=== PATIENT | male | born 1955 | race Caucasian/White ===

== ENCOUNTER → 2019-03-10 14:55 | Outpatient (CLI) | payer OTHER, SELFPAY ==
--- NOTE | 2019-03-10 15:00 | CT_ITS ---
PROCEDURE: CT LUNG SCREENING CLINICAL INDICATION: HX TOBACCO USE Fifty pack-year smoking history, asymptomatic for lung cancer COMPARISON: No exams were available for comparison TECHNIQUE: The exam was performed on a GE Light Speed [address] scanner using 2.90 mGy CTDI. A low dose helical CT CHEST was performed on a multi-detector scanner. All CT scans at the facility use one or more dose reduction, viz: automated exposure control, ma/kV adjustment per patient size (including targeted exams where dose is matched to indication, i.e. head), or iterative reconstruction technique. The LDCT was performed in a facility that meets the criteria for the screening program. Data regarding this exam was submitted to ACR which is an approved registry. The order for this exam indicates that it came as a result of a lung cancer screening counseling shard decision-making visit that included all the elements required of such a visit including smoking cessation. The radiologist interpreting this exam meets the [facility] criteria for the LDCT lung cancer screening program. The exam is reported using the Lung-RADS classification scale and reported to the ACR registry. NOTE: This study was performed for the specific purposes of lung cancer screening and is not an alternative to diagnostic chest CT. RADIATION DOSE: CTDI vol(CT dose Index-volume) = 2.90mG DLP (Dose Length Product) = 127.15 mGcm Lung Rads Category: FINDINGS: COPD changes with centrilobular/panlobular emphysema in scattered areas of scarring with evidence of old granulomatous disease. 7 mm fissural nodule in the right minor fissure. There is a 3 mm ring-like density in the left upper lobe centrally nonspecific. OTHER FINDINGS: Nonobstructing punctate calculi in the lower pole both kidneys at 2-3 mm. Coronary artery calcifications. There is mild prominence of the left main pulmonary artery measuring up to 2.9 cm IMPRESSION: Lung rads category 2, benign findings. Recommend [address] Coronary artery calcifications with COPD and panlobular emphysema. Nonspecific prominence of the left main pulmonary artery Dictated by: Topher Cyr MD 03/14/2019 08:56 Electronically signed by Topher Cyr MD in [place] 03/14/2019 08:56
== END ==
PROVIDERS: PCP Family Medicine; Visit Provider Family Medicine
DX: Z87.891 Personal history of nicotine dependence (principal); Z12.2 Encounter for screening for malignant neoplasm of respiratory organs

== ENCOUNTER → 2019-06-21 14:02 | Outpatient (CLI) | payer OTHER, SELFPAY ==
[2019-06-21 14:50] VITALS: PULSE 62; PULSE 67
== END ==
PROVIDERS: PCP Family Medicine; Visit Provider Family Medicine
DX: R06.02 Shortness of breath (principal)
CPT/HCPCS: 94060; 94640

== ENCOUNTER → 2020-06-25 08:04 | Outpatient (CLI) | payer OTHER, SELFPAY ==
[2020-06-25 14:27] LABS: Basophils # 0.1 K/mm3 (0-0.2); Basophils % 0.8 % (0.1-2.0); Eosinophils # 0.1 K/mm3 (0.0-0.4); Eosinophils % 1.9 % (0.1-12.0); Hematocrit 51.8 % (42.0-52.0); Hemoglobin 17.4 g/dL (14.1-18.0); Lymphocytes # 1.5 K/mm3 (0.7-4.5); Lymphocytes % 23.5 % (10-50); Mean Corpuscular HGB Conc 33.6 g/dL (31.8-35.4); Mean Corpuscular Hemoglobin 32.2 pg (27.0-31.2); Mean Corpuscular Volume 95.9 fl (80-94); Mean Platelet Volume 8.7 fl (7.4-10.4); Monocytes # 0.5 K/mm3 (0.1-1.0); Monocytes % 7.7 % (1.7-9.3); Neutrophils # 4.1 K/mm3 (1.8-7.8); Platelet Count 220 K/mm3 (142-424); Red Blood Count 5.41 M/mm3 (4.60-6.20); Red Cell Distribution Width 14.3 % (11.5-17.5); White Blood Count 6.2 K/mm3 (4.8-10.8)
[2020-06-25 14:28] LABS: Alanine Aminotransferase 12 U/L (12-78); Albumin Level 3.9 g/dl (3.5-5.0); Aspartate Amino Transferase 21 U/L (17-59); Bilirubin,Total 0.6 mg/dl (0.2-1.3); Blood Urea Nitrogen 15 mg/dl (9-20); Calcium 8.9 mg/dl (8.4-10.2); Carbon Dioxide 29 mmol/L (22.0-30.0); Chloride 106 mmol/L (98-107); Estimated Glomerular Filt Rate 98 ml/min (>60); GFR (African American) 119 ML/MIN (>60); Glucose 101 mg/dl (74-100); Sodium 139 mmol/L (136-145); Total Protein,Serum 6.2 g/dl (6.3-8.2); Uric Acid 5.2 mg/dl (3.5-8.5)
[2020-06-25 14:29] LABS: Albumin/Globulin Ratio 1.7 (1.1-1.8); Alkaline Phosphatase 49 U/L (38-126); Cholesterol 154 mg/dl (140-200); Globulin 2.3 g/dL (1.3-3.2); HDL Cholesterol 52 mg/dl (40-60); Triglycerides 91 mg/dl (30-150); VLDL Cholesterol 18 mg/dL (0-40)
[2020-06-25 14:39] LABS: Direct LDL Cholesterol 75.25 mg/dL (100-129)
[2020-06-25 14:59] LABS: Thyroid Stimulating Hormone 2.96 uIU/mL (0.465-4.68)
[2020-06-25 15:33] LABS: Creatinine,Urine Random 139 mg/dL (Not Estab.)
[2020-06-25 15:34] LABS: Microalbumin/Creatinine Ratio 6.1
== END ==
PROVIDERS: Visit Provider Family Medicine
DX: I10 Essential (primary) hypertension (principal)
CPT/HCPCS: 36415; 80053; 80061; 82043; 82570; 84443; 84550; 85025

== ENCOUNTER → 2020-12-17 10:03 | Outpatient (CLI) | payer OTHER, SELFPAY ==
[2020-12-18 08:15] LABS: PSA, Free 1.14 ng/mL; Prostate Specific Ag 5.4 ng/mL (0.0-4.0)
== END ==
PROVIDERS: Visit Provider Urology
DX: R97.20 Elevated prostate specific antigen [PSA] (principal)
CPT/HCPCS: 36415; 84153; 84154

== ENCOUNTER 2022-10-26 15:02 | Inpatient (IN) | payer OTHER, SELFPAY ==
[2022-10-26] VITALS (16 sets, daily range): BP systolic 92–118; BP diastolic 52–71; PULSE 74–89; RESP 18–22; TEMP 36.5–36.7; O2SAT 85–96; BMI 21.7; BMI 20.7
--- NOTE | 2022-10-26 15:12 | ECG_ITS ---
APPROVED REPORT Exam: Resting ECG HR:75 bpm ECG Measurements Heart Rate 75 AXES CO 168 P 88 QRSd 95 QRS 88 QT 363 T 78 QTc 392 Conclusion SINUS RHYTHM NORMAL ECG UNCONFIRMED REPORT Electronically signed by : Kvng Rodriguez MD 10/26/2022 20:13:55
--- NOTE | 2022-10-26 15:43 | XR_ITS ---
FINAL REPORT CLINICAL HISTORY: SOA COMPARISON: Prior chest CT from 03/10/2019 FINDINGS: The heart size is normal. The mediastinum is normal. There are coarse interstitial opacities in the lung bases, with the appearance of moderate chronic fibrosis. This is more evident on the chest x-ray today than it was on a CT scan of 2019.. There are no pleural effusions. There is no pneumothorax. There is no osseous abnormality. IMPRESSION: Coarse interstitial opacities in the lung bases, with the appearance of moderate chronic fibrosis. This is more evident on the chest x-ray today than it was on a CT scan of 2019. Reviewed, Interpreted and Dictated by Zachery Herman MD Transcribed by Cassie Villela Authenticated and [facility]
--- NOTE | 2022-10-26 15:55 | CT_ITS ---
FINAL REPORT TECHNIQUE: Postcontrast axial images of the chest were performed in a CTA protocol. This study was performed with techniques to keep radiation doses as low as reasonably achievable, (ALARA). Individualized dose reduction technique using automated exposure control or adjustment of mA and/or kV according to the patient's size were employed. CLINICAL HISTORY: SOA, hypoxemia FINDINGS: The heart is normal in size. There is a precarinal lymph node measuring 1.9 cm and a right hilar lymph node measuring 1.8 cm. No pleural or pericardial effusion is identified. The thoracic aorta is normal in caliber with no focal aneurysm or dissection identified. There is no filling defect to suggest pulmonary embolism. No lung infiltrate or mass is identified. There are moderate changes of centrilobular emphysema. Coarse interstitial opacities are seen in the periphery bilaterally likely due to chronic fibrosis. The images of the upper abdomen demonstrate small, nonobstructing renal stones. IMPRESSION: No evidence for PE on this exam. Centrilobular emphysema and changes of chronic fibrosis. Small, nonobstructing renal stones. Reviewed, Interpreted and Dictated by Zachery Herman MD Transcribed by Candi Correa Authenticated and [facility]
--- NOTE | 2022-10-26 15:57 | HMH.EDGENADL ---
Discharge Plan Disposition Patient Disposition: Admitted As Inpatient Clinical Impressions Clinical Impression: COPD exacerbation, NSTEMI (non-ST elevated myocardial infarction) Discharge ED Provider: Andrei Porras General Adult HPI General Chief complaint: Shortness of Breath/Dyspnea Stated complaint: phy ref, soa Time Seen by Provider: 10/26/22 15:24 Mode of Arrival: Ambulatory Source of Information: Patient Limitations: No Limitations Description of Symptoms (Recalled from ER Triage Doc. by RN): Patient sent to ER by Lisa Poole for low O2 sats and increased SOB since Wednesday. Patient has no other complaints at this time. History of Present Illness HPI narrative: Is a 66-year-old male with history of COPD not currently smoking not on home oxygen, hypertension currently on a beta-bessy presenting with shortness of breath. Patient was seen a couple days prior to arrival, diagnosed with pneumonia and given antibiotics and steroid to go home with. Patient has had persistent, productive cough with green sputum. But denies chest pain, nausea or vomiting, fevers or chills. States that his cough may have gotten a little better, but has not improved significantly. Significant shortness of breath which has been persistent and/or worsening, so came to the ER for further evaluation again. Related Data Home Medications Medication Instructions Recorded Confirmed tamsulosin 0.4 mg capsule 0.4 mg PO DAILY . 10/26/22 10/26/22 Previous Rx's Medication Instructions Recorded bisoprolol 2.5 1 tab PO DAILY #30 tabs 06/30/21 mg-hydrochlorothiazide 6.25 mg tablet Allergies Allergy/AdvReac Type Severity Reaction Status Date / Time penicillin G Allergy Verified 12/23/20 13:13 [facility] Disclaimer: The information contained in this section may have been updated after the patient was seen, as this information can be updated by other users. Medical History (Updated 10/26/22 @ 22:21 by Vanesa Gonzalez RN) COPD (chronic obstructive pulmonary disease) Hypertension Family History (Updated 10/26/22 @ 22:22 by Vanesa Gonzalez RN) Other Family history of heart disease Social History (Updated 10/26/22 @ 22:20 by Vanesa Gonzalez RN) Smoking Status: Never smoker alcohol intake: never substance use type: denies use current occupational status: retired Travel in the last 8 weeks: None household members: none housing: house ROS Obtained: Yes All systems reviewed & no additional complaints except as documented Physical Exam General General appearance: alert, in distress and other ( ) Head Head exam: atraumatic and normocephalic Eye Eye exam: Present normal appearance, PERRL and EOMI ENT ENT exam: Present mucous membranes moist Neck Neck exam: Present normal inspection, full ROM and trachea midline Respiratory Respiratory exam: Present wheezes, accessory muscle use and prolonged expiratory phase; Absent respiratory distress or stridor Cardiovascular Cardiovascular exam: Present regular rate and normal rhythm Abdominal Exam Abdominal exam: Present soft; Absent distention, tenderness, guarding, rebound, rigidity or normal bowel sounds Extremities Exam Extremities exam: Absent edema Neurological Exam Neurological exam: Present alert, oriented X3, CN II-XII intact and normal gait; Absent motor sensory deficit Skin Skin exam: Present warm and dry; Absent diaphoresis or erythema Medical Decision Making Medical Records Medical records reviewed: Yes I reviewed the patient's medical records. Vishnu Inquiry Pt receiving controlled substance: No Vishnu was queried for this patient: No Vital Signs: 10/26/22 15:03 10/26/22 15:09 10/26/22 15:30 Temperature 97.7 F Temperature Source Oral Pulse Rate 80 74 Pulse Rate [Radial] 81 Respiratory Rate 22 Blood Pressure 118/66 97/62 L Blood Pressure [Right Arm] 118/66 Blood Pressure Mean 96 73 Blood Pressure Mean [Right Arm] 83 Blo
[2022-10-26 16:00] LABS: Alanine Aminotransferase 30 U/L (12-78); Albumin/Globulin Ratio 1.3 (1.1-1.8); Alkaline Phosphatase 35 U/L (38-126); Aspartate Amino Transferase 40 U/L (17-59); Bilirubin,Total 0.9 mg/dl (0.2-1.3); Blood Urea Nitrogen 31 mg/dl (9-20); Calcium 8.8 mg/dl (8.4-10.2); Carbon Dioxide 29 mmol/L (22.0-30.0); Chloride 95 mmol/L (98-107); Creatinine Clearance Estimated 65 mL/min (50-200); Estimated Glomerular Filt Rate 85 ml/min (>60); GFR (African American) 103 ML/MIN (>60); Glucose 98 mg/dl (74-100); Sodium 135 mmol/L (136-145)
[2022-10-26 16:33] LABS: Lactic Acid 1.7 mmol/L (0.7-2.1)
[2022-10-26 16:43] LABS: NT Pro Brain Natriuretic Pep. 1390 pg/mL (0-125)
[2022-10-26 16:45] LABS: Troponin I 0.16 ng/ml (0.00-0.034)
[2022-10-26 16:51] LABS: Procalcitonin 0.089 ng/mL (0.0-2.0)
[2022-10-26 16:56] LABS: Acetone, Serum (Rapid) None Detected (None Detect)
[2022-10-26 17:12] LABS: Basophils % 0.2 % (0.1-2.0); Eosinophils % 0.2 % (0.1-12.0); Hematocrit 48.7 % (42.0-52.0); Hemoglobin 15.6 g/dL (14.1-18.0); Lymphocytes # 1.3 K/mm3 (0.7-4.5); Lymphocytes % 12.8 % (10-50); Mean Corpuscular HGB Conc 32.1 g/dL (31.8-35.4); Mean Corpuscular Volume 96.6 fl (80-94); Mean Platelet Volume 8.1 fl (7.4-10.4); Monocytes # 1.2 K/mm3 (0.1-1.0); Monocytes % 11.7 % (1.7-9.3); Neutrophils # 7.7 K/mm3 (1.8-7.8); Neutrophils % 75.1 % (37.0-80.0); Platelet Count 186 K/mm3 (142-424); Red Blood Count 5.05 M/mm3 (4.60-6.20); Red Cell Distribution Width 13.5 % (11.5-17.5); White Blood Count 10.2 K/mm3 (4.8-10.8)
--- NOTE | 2022-10-26 17:17 | ECG_ITS ---
APPROVED REPORT Exam: Resting ECG HR:81 bpm ECG Measurements Heart Rate 81 AXES GA 168 P 88 QRSd 102 QRS 88 QT 369 T 77 QTc 406 Conclusion SINUS RHYTHM NORMAL ECG UNCONFIRMED REPORT Electronically signed by : Kvng Rodirguez MD 10/27/2022 19:57:50
--- NOTE | 2022-10-26 17:17 | PC.NURSE ---
Repeat EKG performed oer Dr. Porras's request
--- NOTE | 2022-10-26 17:19 | PC.NURSE ---
Rounded on patient. Zanoni given. No other needs at this time.
--- NOTE | 2022-10-26 18:16 | PC.NURSE ---
Notified RT of VBG
[2022-10-26 18:31] LABS: VBG Base Excess -0.6 mmol/L (-2.4-2.3); VBG HCO3 25.6 mmol/L (23-30); VBG Oxygen Saturation 89.5 % (50-70); VBG PCO2 51.4 mmol/L (35-51); VBG PH 7.32 mmol/L (7.31-7.41); VBG PO2 58.1 mmol/L (28-40); VBG Total CO2 27.2 mmol/L (23-27)
--- NOTE | 2022-10-26 19:30 | PC.NURSE ---
Pt 2nd trop being drawn by lab, pt a/o, o2 93% at this time.
[2022-10-26 20:10] LABS: Troponin I 0.13 ng/ml (0.00-0.034)
--- NOTE | 2022-10-26 20:16 | PC.NURSE ---
Pt daughter at bedside, pt eating, o2 at 87% pt o2 increased from 2l to 3l nc
--- NOTE | 2022-10-26 21:34 | PC.NURSE ---
Patient arrived to floor via wheelchair at 21:35.
[2022-10-27] VITALS (10 sets, daily range): BP systolic 99–114; BP diastolic 57–67; PULSE 70–90; RESP 18–22; TEMP 36.6–37.2; O2SAT 92–93; BMI 21.3
--- NOTE | 2022-10-27 07:30 | CA_ITS ---
APPROVED REPORT EXAM: Comprehensive 2D, Doppler, and color-flow Echocardiogram Powder Hand: Shikha You, DICK, RVS Ht: 5 ft 6 in Wt: 136lbs BSA: 1.70 BP: 92/59 mmHg Indications: COPD exacerbation, NSTEMI, Pneumonia, HTN 2D Dimensions Aortic Root 3.31 cm LA Volume 54.50 mL Left Atrium 2.50 cm LA Volume Index 31.30 mL/m2 (M/F) 16-34 LVOT 2.17 cm (M/F) 1.5-2.5 M-Mode Dimensions RVDd 2.17 cm (0.9-2.6) LA Diam 3.93 cm (1.9-4.0) LVDd 4.68 cm (3.5-5.7) Ao Diam 3.77 cm (2.0-3.7) LVDs 2.84 cm (3.5-5.7) IVSd 0.90 cm (0.6-1.1) PWd 0.84 cm (0.6-1.1) EF (Teich) 60.00% EPSs 0.61 cm FS 39.30% EDV (Teich) 101.30 mL TAPSE 2.96 (<1.7) ESV (Teich) 30.60 mL LV Diastology E Decel Time 183.00 (160-240 msec) E/A Ratio 0.88 MED E' 8.90 (< 7 cm/sec) MED A' 12.60 cm/s E'/MED E' Ratio 7.03 (>14) LAT E' 5.70 (<10 cm/sec) LAT A' 10.30 cm/s E/LAT E' Ratio 10.98 (>14) Aortic Valve LVOT Max 88.00 (70-110 cm/s) LVOT VTI 18.07 cm AoV Peak Kaushik. 152.00 (50-130 cm/s) AO Peak GR. 9.20 mmHg AO Mean GR. 4.60 (<5 mmHg) AO VTI 31.64 (18-25 cm) CARLENE (VTI) 2.11 (2.5-4.5 cm2) Mitral Valve MV A Velocity 71.00 (40-130 cm/s) E/A Ratio 0.88 MV Decel. Time 183.00 (160-240 ms) Pulmonary Valve PV Peak Velocity 63.00 (50-150 cm/s) Tricuspid Valve TR P. Velocity 330.00 cm/s RAP Estimate 10.00 mmHg RVSP 53.70 mmHg Left Ventricle The left ventricle is normal size. The left ventricular systolic function is low normal. There is normal left ventricular wall thickness. There is mild hypokinesis of the basal inferior LV wall. Diastolic function is indeterminate. LVEF is 50% Right Ventricle The right ventricle is mildly dilated. Right ventricle is mildly hypokinetic. Atria The left atrium size is normal. The right atrium size is normal. There is no Doppler evidence of interatrial shunt. Aortic Valve The aortic valve is normal in structure. There is no aortic valvular stenosis. No aortic regurgitation is present. Mitral Valve The mitral valve is normal in structure. No evidence of mitral valve stenosis. Mild mitral regurgitation. Tricuspid Valve Tricuspid valve leaflets are thin and pliable. Moderate tricuspid regurgitation. RVSP is 50-55 mmHg. Pulmonic Valve The pulmonary valve is normal in structure. Mild pulmonic regurgitation. Great Vessels The aortic root is normal in size. The ascending aorta is normal in size. The IVC is dilated, but collapses > 50% with respirophasic variation. RA pressure is estimated at 8 mmHg. Pericardium There is no pericardial effusion. Other Information Study Quality: Adequate Conclusion Low normal LV systolic function. LVEF is 50%. Mild hypokinesis of the basal inferior LV wall. Mild RV dilation with mild reduction in RV function. Mild MR. Moderate TR. Elevated RVSP 50-55 mmHg. Electronically signed by : Latesha Guzman, 10/28/2022 00:53:46
--- NOTE | 2022-10-27 08:17 | EXP.CARD.CON ---
History of Present Illness History of Present Illness Consult date: 10/27/22 Requesting physician: Cuco Leon Consult reason: shortness of breath Chief complaint: Cough, SOA Additional Medical History:: 1. Ex smoker with at least 80 pack year history A. COPD with centrilobular/panlobular emphysema 2. Coronary artery calcification noted on CT scan 03/10/2019 3. Hypertension History of present illness: Is a 66-year-old male with history of COPD not currently smoking not on home oxygen, hypertension currently on a beta-bessy presenting with shortness of breath. Patient was seen a couple days prior to arrival, diagnosed with pneumonia and given antibiotics and steroid to go home with. Patient has had persistent, productive cough with green sputum. But denies chest pain, nausea or vomiting, fevers or chills. States that his cough may have gotten a little better, but has not improved significantly. Significant shortness of breath which has been persistent and/or worsening, so came to the ER for further evaluation again. The above per Dr. Porras The above events confirmed with the patient. He denies any chest pain except from cough. States he is very active and mows 3 acres of grass without problems. Patient states he has never been in the hospital before this admission. 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 He has recently quit. Cardiology consulted for elevated troponins in the setting of COPD exacerbation. Echocardiogram is being performed at this time with preliminary EF in the 55% range. [facility] Disclaimer: The information contained in this section may have been updated after the patient was seen, as this information can be updated by other users. Medical History (Updated 10/27/22 @ 08:30 by STACIA Rodriguez) COPD (chronic obstructive pulmonary disease) Hypertension Family History (Updated 10/26/22 @ 22:22 by Vanesa Gonzalez RN) Family history of heart disease Social History (Updated 10/26/22 @ 22:20 by Vanesa Gonzalez RN) Smoking Status: Never smoker alcohol intake: never substance use type: denies use current occupational status: retired Travel in the last 8 weeks: None household members: none housing: house Review of Systems Review of Systems Review of systems:: pertinent systems reviewed and negative unless documented below *Cardiovascular Cardiovascular: Reports chest pain and Reports dyspnea *Respiratory Respiratory: Reports cough and Reports dyspnea Exam Data for Last 24 hours Vital signs and Labs for Last 24 Hours: Temp Pulse Resp BP Pulse Ox O2 Del Method O2 Flow Rate 97.9 F 70 20 99/57 L 93 L Nasal Cannula 3 10/27/22 07:54 10/27/22 07:54 10/27/22 07:54 10/27/22 07:54 10/27/22 07:54 10/27/22 07:54 10/27/22 07:54 Laboratory Results - last 24 hr 10/26/22 15:38: WBC 10.2, RBC 5.05, Hgb 15.6, Hct 48.7, MCV 96.6 H, MCH 31.0, MCHC 32.1, RDW 13.5, Plt Count 186, MPV 8.1, Neut % (Auto) 75.1, Lymph % (Auto) 12.8, [place] % (Auto) 11.7 H, Eos % (Auto) 0.2, Baso % (Auto) 0.2, Neut # (Auto) 7.7, Lymph # (Auto) 1.3, [place] # (Auto) 1.2 H, Eos # (Auto) 0.0, Baso # (Auto) 0.0, Sodium 135 L, Potassium 4.0, Chloride 95 L, Carbon Dioxide 29, Anion Gap 15.0, BUN 31 H, Creatinine 0.90, Estimated Creat Clear 65, Estimated GFR 85, Est GFR ( Amer) 103, Glucose 98, Lactate 1.7, Calcium 8.8, Total Bilirubin 0.9, AST 40, ALT 30, Alkaline Phosphatase 35 L, Troponin I 0.16 H, NT-Pro-B Natriuret Pep 1390 H, Total Protein 7.0, Albumin 4.0, Globulin 3.0, Albumin/Globulin Ratio 1.3, Procalcitonin 0.089, Acetone Level None detected 10/26/22 15:57: VBG pH 7.32, VBG pCO2 51.4 H, VBG pO2 58.1 H, VBG HCO3 25.6, VBG Total CO2 27.2 H, VBG O2 Saturation 89.5 H, VBG Base Excess -0.6 10/26/22 19:27: Troponin I 0.13 H 10/26/22 22:25: Troponin I 0.10 H I & O for Last 24 hours: Intake & Output 10/24/22 10/25/22 10/26/22 10/27/22 11:59 11:59 11:59 11:59 Int
--- NOTE | 2022-10-27 08:55 | EXP.HP ---
History of Present Illness *Admission Date: 10/26/22 *Reason for visit:: Hypoxia and respiratory distress. *History of present illness: Mr. Moody is a 66-year-old male with a history of hypertension, BPH, and COPD who presented to the office of [facility] 10/26/2022 complaining of shortness of breath and ongoing productive cough. He states he was awakening during the night for the last 3 nights and was unable to breathe. He has been using DuoNeb treatments frequently with some assistance. He was also seen in the office on 10/23/2022 and started on Zithromax for a respiratory infection. He also received a steroid shot at that time. With evaluation in the office of [facility] yesterday white blood cell count was found to be 10,200. He was having labored respiratory efforts and was sent to the ER for treatment, management, and possible admission. With evaluation in the emergency room white count continued to be elevated. He was noted to be afebrile with O2 sats initially at 85%. After application of oxygen per nasal cannula at 2 L, O2 sats were 94. He was given several DuoNeb treatments and started on Rocephin and Zithromax IV. He also received 125 mg of Solu-Medrol. Troponin I's were found to be elevated. He was thus admitted for ongoing treatment and for further evaluation. This a.m. at time of exams he admits to feeling little bit better. He did sleep some. He is hungry for breakfast. He continues with a nonproductive cough. He has remained on O2 at 3 L/min. He denies any chest pain. Chest x-ray revealed coarse interstitial opacities in the lung base with appearance of moderate chronic fibrosis. He also had a CTA of the chest which revealed no evidence of PE, Central obar emphysema and changes of chronic fibrosis; small nonobstructing renal stones. [facility] Disclaimer: The information contained in this section may have been updated after the patient was seen, as this information can be updated by other users. Medical History (Updated 10/27/22 @ 10:18 by Yesi Ball MD) Acute respiratory failure with hypoxia BPH (benign prostatic hyperplasia) COPD (chronic obstructive pulmonary disease) Hypertension Pneumonia Family History (Updated 10/27/22 @ 09:02 by Lisa Poole APRN) Family history of heart disease Hypertension Stroke Social History (Updated 10/26/22 @ 22:20 by Vanesa Gonzalez RN) Smoking Status: Never smoker alcohol intake: never substance use type: denies use current occupational status: retired Travel in the last 8 weeks: None household members: none housing: house Review of Systems Constitutional Constitutional: Reports difficulty sleeping (Due to shortness of breath), Denies fever(s), Denies frequent falls, Denies headache(s), Reports poor appetite and Denies weakness Eyes Eyes: Denies change in vision ENT Ears, Nose, Mouth, and Throat: Denies dizziness, Denies otalgia, Denies headache(s), Denies sore throat and Denies vertigo *Cardiovascular Cardiovascular: Denies chest pain, Reports dyspnea, Reports dyspnea on exertion, Denies edema and Denies irregular heart rhythm *Respiratory Respiratory: Reports change in phlegm color, Reports chest congestion, Reports cough, Reports dyspnea, Reports dyspnea on exertion and Denies hemoptysis *Gastrointestinal Gastrointestinal: Denies change in stool character, Reports heartburn, Denies nausea and Denies vomiting *Genitourinary Genitourinary: Denies difficulty urinating *Musculoskeletal Musculoskeletal: Denies arthralgias and Reports muscle weakness Comments: States when he feels well that he is very active *Neurologic Neurologic: Denies dizziness, Denies frequent falls, Denies headache(s), Denies vertigo and Denies weakness Meds Home Medications and Allergies Home Medications Medication Instructions Recorded Confirmed Type bisoprolol 2.5 1 tab PO DAILY #30 tabs 06/30/21 10/26/22 Rx mg-hydrochlorothiazide 6.25 mg
--- NOTE | 2022-10-27 09:15 | EXP.PULM.CON ---
History of Present Illness History of present illness: Mr. Moody is a 66-year-old male greater than [id number] smoker still asthma blood in 2020 carries a diagnosis COPD emphysema using only nebulizations on as-needed basis at home presented with worsening respiratory distress and wheezing with worsening productive cough and greenish phlegm and pulmonary was called for further evaluation. [facility] Disclaimer: The information contained in this section may have been updated after the patient was seen, as this information can be updated by other users. Medical History (Updated 10/27/22 @ 10:18 by Yesi Ball MD) Acute respiratory failure with hypoxia BPH (benign prostatic hyperplasia) COPD (chronic obstructive pulmonary disease) Hypertension Pneumonia Family History (Updated 10/27/22 @ 09:02 by Lisa Poole APRN) Other Family history of heart disease Hypertension Stroke Social History (Updated 10/26/22 @ 22:20 by Vanesa Gonzalez RN) Smoking Status: Never smoker alcohol intake: never substance use type: denies use current occupational status: retired Travel in the last 8 weeks: None household members: none housing: house Review of Systems Constitutional Constitutional: Reports fatigue, Denies frequent falls, Denies headache(s) and Denies weakness Eyes Eyes: Denies eye discharge, Denies dry eyes, Denies irritation and Denies itchy eyes ENT Ears, Nose, Mouth, and Throat: Denies dizziness, Denies headache(s), Denies lip swelling, Denies throat swelling and Denies vertigo *Cardiovascular Cardiovascular: Reports dyspnea and Reports dyspnea on exertion *Respiratory Respiratory: Reports chest congestion, Reports cough, Reports dyspnea, Reports dyspnea on exertion, Reports excessive phlegm production and Reports wheezing *Gastrointestinal Gastrointestinal: Denies abdominal pain, Denies belching and Denies cramping *Musculoskeletal Musculoskeletal: Reports back pain, Reports myalgias and Reports other (No small joint swelling or Pain) *Neurologic Neurologic: Denies dizziness, Denies frequent falls, Denies headache(s), Denies vertigo and Denies weakness Psychiatric Psychiatric: Denies homicidal ideation and Denies suicidal ideation Endocrine Endocrine: Reports fatigue and Denies heat intolerance Hematologic/Lymphatic Hematologic/Lymphatic: Denies easy bleeding and Denies lymphadenopathy Allergic/Immunologic Allergic/Immunologic: Denies itchy eyes, Denies lip swelling, Denies throat swelling and Reports wheezing Pulmonology Exam Inpatient Vital signs and Labs for Last 24 Hours: Temp Pulse Resp BP Pulse Ox O2 Del Method O2 Flow Rate 97.9 F 70 20 99/57 L 93 L Nasal Cannula 3 10/27/22 07:54 10/27/22 07:54 10/27/22 07:54 10/27/22 07:54 10/27/22 07:54 10/27/22 07:54 10/27/22 07:54 Laboratory Results - last 24 hr 10/26/22 15:38: WBC 10.2, RBC 5.05, Hgb 15.6, Hct 48.7, MCV 96.6 H, MCH 31.0, MCHC 32.1, RDW 13.5, Plt Count 186, MPV 8.1, Neut % (Auto) 75.1, Lymph % (Auto) 12.8, [place] % (Auto) 11.7 H, Eos % (Auto) 0.2, Baso % (Auto) 0.2, Neut # (Auto) 7.7, Lymph # (Auto) 1.3, [place] # (Auto) 1.2 H, Eos # (Auto) 0.0, Baso # (Auto) 0.0, Sodium 135 L, Potassium 4.0, Chloride 95 L, Carbon Dioxide 29, Anion Gap 15.0, BUN 31 H, Creatinine 0.90, Estimated Creat Clear 65, Estimated GFR 85, Est GFR ( Amer) 103, Glucose 98, Lactate 1.7, Calcium 8.8, Total Bilirubin 0.9, AST 40, ALT 30, Alkaline Phosphatase 35 L, Troponin I 0.16 H, NT-Pro-B Natriuret Pep 1390 H, Total Protein 7.0, Albumin 4.0, Globulin 3.0, Albumin/Globulin Ratio 1.3, Procalcitonin 0.089, Acetone Level None detected 10/26/22 15:57: VBG pH 7.32, VBG pCO2 51.4 H, VBG pO2 58.1 H, VBG HCO3 25.6, VBG Total CO2 27.2 H, VBG O2 Saturation 89.5 H, VBG Base Excess -0.6 10/26/22 19:27: Troponin I 0.13 H 10/26/22 22:25: Troponin I 0.10 H I & O for Labs for Last 24 Hours: Intake & Output 10/24/22 10/25/22 10/26/22 10/27/22 23:59 23:59 23:59 23:
--- NOTE | 2022-10-27 18:43 | INFXCTL.NOTE ---
Patient reported a one time complaint of heart burn, patient received a dose of mylanta. Patient's vital signs have been stable this shift.
--- NOTE | 2022-10-27 21:19 | PC.NURSE ---
Removed supplemental oxygen for trial wean, pt desated to 75 on room air at rest. Supplemental oxygen reapplied via nasal cannula at 2L, saturations at 90%. Pt remains on continuous saturation monitoring.
[2022-10-28] VITALS (14 sets, daily range): BP systolic 98–121; BP diastolic 57–67; PULSE 60–95; RESP 16–20; TEMP 36.6–37; O2SAT 92–98; BMI 22.1
[2022-10-28 06:58] LABS: Hematocrit 47.4 % (42.0-52.0); Hemoglobin 14.8 g/dL (14.1-18.0); Lymphocytes # 0.5 K/mm3 (0.7-4.5); Lymphocytes % 5.2 % (10-50); Mean Corpuscular HGB Conc 31.2 g/dL (31.8-35.4); Mean Corpuscular Hemoglobin 30.9 pg (27.0-31.2); Mean Corpuscular Volume 98.9 fl (80-94); Monocytes # 0.5 K/mm3 (0.1-1.0); Monocytes % 6.1 % (1.7-9.3); Neutrophils # 7.9 K/mm3 (1.8-7.8); Neutrophils % 88.6 % (37.0-80.0); Platelet Count 218 K/mm3 (142-424); Red Blood Count 4.79 M/mm3 (4.60-6.20); Red Cell Distribution Width 13.6 % (11.5-17.5); White Blood Count 8.9 K/mm3 (4.8-10.8)
[2022-10-28 07:05] LABS: MANUAL DIFFERENTIAL MANUAL DIFFERENTIAL (MANUAL DIFF)
[2022-10-28 07:15] LABS: Anion Gap 7.4 mEq/L (5-15); Calcium 8.5 mg/dl (8.4-10.2); Carbon Dioxide 36 mmol/L (22.0-30.0); Chloride 102 mmol/L (98-107); Glucose 157 mg/dl (74-100); Potassium 4.4 mmoL/L (3.5-5.1); Sodium 141 mmol/L (136-145)
[2022-10-28 07:20] LABS: Blood Urea Nitrogen 20 mg/dl (9-20); Creatinine Clearance Estimated 66 mL/min (50-200); Estimated Glomerular Filt Rate 136 ml/min (>60); GFR (African American) 164 ML/MIN (>60); Lymphocytes % 11 % (10-50); Monocytes % 4 % (2-9); Neutrophils % 84 % (42-76); Platelet Estimate Normal; RBC Morphology Normal; Total Cells Counted 100
--- NOTE | 2022-10-28 08:36 | EXP.ACUTE.PN ---
Subjective *Date: 10/28/22 *Time: 08:36 Interval history: Patient feels about thie same today as yesterday. States he had to have a double breathing treatment at 6 am this morning. Medical Exam Vital signs and Labs for Last 24 Hours: Vital Signs Temp Pulse Pulse Resp BP Pulse Ox O2 Del Method 10/28/22 08:00 98.1 F 79 16 98/57 L 92 L Nasal Cannula 10/28/22 06:42 Nasal Cannula 10/28/22 06:14 62 10/28/22 06:14 66 10/28/22 06:14 93 L Nasal Cannula 10/28/22 04:00 71 10/28/22 04:32 Nasal Cannula 10/28/22 04:00 98.6 F 78 18 108/66 L 96 Nasal Cannula 10/28/22 03:00 Nasal Cannula 10/27/22 20:00 80 10/28/22 00:00 60 10/28/22 02:17 77 10/28/22 02:17 78 10/28/22 00:23 Nasal Cannula 10/27/22 22:47 Nasal Cannula 10/27/22 22:19 87 10/27/22 22:19 79 10/27/22 20:35 Nasal Cannula 10/27/22 20:00 Room Air 10/27/22 19:39 98.9 F 78 19 112/67 93 L Nasal Cannula 10/27/22 18:40 79 10/27/22 18:40 90 10/27/22 18:40 92 L Nasal Cannula 10/27/22 16:00 70 10/27/22 16:00 98.0 F 82 22 111/66 92 L Nasal Cannula 10/27/22 12:00 77 10/27/22 13:17 89 10/27/22 13:17 88 10/27/22 11:44 97.9 F 79 18 114/58 L 93 L Nasal Cannula 10/27/22 11:26 77 18 O2 Flow Rate 10/28/22 08:00 3 10/28/22 06:42 10/28/22 06:14 10/28/22 06:14 10/28/22 06:14 3 10/28/22 04:00 10/28/22 04:32 10/28/22 04:00 3 10/28/22 03:00 10/27/22 20:00 10/28/22 00:00 10/28/22 02:17 10/28/22 02:17 10/28/22 00:23 10/27/22 22:47 10/27/22 22:19 10/27/22 22:19 10/27/22 20:35 10/27/22 20:00 10/27/22 19:39 3 10/27/22 18:40 10/27/22 18:40 10/27/22 18:40 3 10/27/22 16:00 10/27/22 16:00 3 10/27/22 12:00 10/27/22 13:17 10/27/22 13:17 10/27/22 11:44 3 10/27/22 11:26 Intake and Output 10/27/22 10/28/22 10/28/22 23:59 07:59 15:59 Intake Total 270 / 1269 1100 / 1370 270 / 1370 Output Total 0 / 0 0 / 0 Balance 270 / 1269 1100 / 1370 270 / 1370 Intake: Intake, Oral Amount 270 / 540 270 / 270 Intake, Total IV Amount 1100 / 1100 0.9 % Sodium Chloride 1000ML 1, 1100 / 1100 000 ml @ 100 mls/hr IV .Q10H [facility] Rx#:[id number] Output: Output, Urine Amount 0 / 0 0 / 0 Other: Number of Unmeasured Voids 1 1 Weight 137 lb 8 oz Patient Weight 10/28/22 23:59 Weight 137 lb 8 oz Laboratory Results - last 24 hr 10/28/22 06:30: WBC 8.9, RBC 4.79, Hgb 14.8, Hct 47.4, MCV 98.9 H, MCH 30.9, MCHC 31.2 L, RDW 13.6, Plt Count 218, MPV 8.0, Neut % (Auto) 88.6 H, Lymph % (Auto) 5.2 L, [place] % (Auto) 6.1, Eos % (Auto) 0.0 L, Baso % (Auto) 0.0 L, Neut # (Auto) 7.9 H, Lymph # (Auto) 0.5 L, [place] # (Auto) 0.5, Eos # (Auto) 0.0, Baso # (Auto) 0.0, Total Counted 100, Neutrophils % (Manual) 84 H, Band Neutrophils % 1.0, Lymphocytes % (Manual) 11, Monocytes % (Manual) 4, Platelet Estimate Normal, RBC Morphology Normal, Sodium 141, Potassium 4.4, Chloride 102, Carbon Dioxide 36 H, Anion Gap 7.4, BUN 20 D, Creatinine 0.60 L D, Estimated Creat Clear 66, Estimated GFR 136, Est GFR ( Amer) 164 D, Glucose 157 H, Calcium 8.5 I & O for Labs for Last 24 Hours: Intake & Output 10/25/22 10/26/22 10/27/22 10/28/22 23:59 23:59 23:59 23:59 Intake Total 1269 / 1269 1370 / 1370 Output Total 0 / 0 0 / 0 Balance 1269 / 1269 1370 / 1370 Weight 129 lb 1 oz 132 lb 9 oz 137 lb 8 oz Microbiology Reports for the Last 24 Hours: Microbiology 10/27/22 11:20 Sputum - Expectorated Sputum Gram Stain - Final Constitutional: Present no acute distress Respiratory: Present wheezes and diminished air movement Cardiac: Present Reg Rate and Rhythm GI: Present normal bowel sounds; Absent tenderness Extremities: Present normal inspection and full ROM Skin: Present intact; Absent erythema Neur
--- NOTE | 2022-10-28 09:13 | EXP.CARD.PN ---
Subjective Subjective Date: 10/28/22 Time: 09:14 Principal diagnosis: COPD exacerbation, NSTEMI Interval history: 66-year-old white male sitting in bed in no acute distress. Oxygen in place. Patient denies any chest pain but continues to have productive cough of greenish colored phlegm. He does not feel that he can lay flat for any procedure at this time Exam Data for Last 24 hours Vital signs and Labs for Last 24 Hours: Temp Pulse Resp BP Pulse Ox O2 Del Method O2 Flow Rate 98.1 F 79 16 98/57 L 92 L Nasal Cannula 3 10/28/22 08:00 10/28/22 08:00 10/28/22 08:00 10/28/22 08:00 10/28/22 08:00 10/28/22 08:00 10/28/22 08:00 Laboratory Results - last 24 hr 10/28/22 06:30: WBC 8.9, RBC 4.79, Hgb 14.8, Hct 47.4, MCV 98.9 H, MCH 30.9, MCHC 31.2 L, RDW 13.6, Plt Count 218, MPV 8.0, Neut % (Auto) 88.6 H, Lymph % (Auto) 5.2 L, [place] % (Auto) 6.1, Eos % (Auto) 0.0 L, Baso % (Auto) 0.0 L, Neut # (Auto) 7.9 H, Lymph # (Auto) 0.5 L, [place] # (Auto) 0.5, Eos # (Auto) 0.0, Baso # (Auto) 0.0, Total Counted 100, Neutrophils % (Manual) 84 H, Band Neutrophils % 1.0, Lymphocytes % (Manual) 11, Monocytes % (Manual) 4, Platelet Estimate Normal, RBC Morphology Normal, Sodium 141, Potassium 4.4, Chloride 102, Carbon Dioxide 36 H, Anion Gap 7.4, BUN 20 D, Creatinine 0.60 L D, Estimated Creat Clear 66, Estimated GFR 136, Est GFR ( Amer) 164 D, Glucose 157 H, Calcium 8.5 I & O for Last 24 hours: Intake & Output 10/25/22 10/26/22 10/27/22 10/28/22 11:59 11:59 11:59 11:59 Intake Total 729 / 729 191 1909 Output Total 0 / 0 0 / 0 Balance 729 / 729 1909 Weight 132 lb 9 oz 137 lb 8 oz Microbiology Reports for the Last 24 Hours: Microbiology 10/27/22 11:20 Sputum - Expectorated Sputum Gram Stain - Final Constitutional Constitutional: no acute distress *Routine Respiratory Exam Respiratory: Present decreased breath sounds and rhonchi *Routine Cardiovascular Exam Cardiovascular: Present RRR *Routine Neurological Exam Neurological: Present alert and oriented X3 Progress Note: A&P Assessment and plan (1) COPD exacerbation: Status: Acute (2) Pneumonia: Status: Acute (3) NSTEMI (non-ST elevated myocardial infarction): Status: Acute (4) Acute respiratory failure with hypoxia: Status: Acute (5) Hypertension: Status: Acute Assessment and Plan Assessment and Plan for All Diagnoses:: 1. COPD exacerbation with hypoxemia -CTA negative for PE or infiltrates -on ceftriaxone and azithromycin along with IV steroids -treatment per Dr. Leon and Dr. Ball 2. Elevated troponin/NSTEMI related to #1 -echo shows EF 50% with mild hypokinesis of the basal inferior LV wall. Mild RV dilatation with mild reduced RV function. Mild MR and moderate TR with RVSP of 50-55 mmHg. -CAC noted on CTA scan -In light of wall motion abnormality in setting of non-STEMI, would prefer to proceed with C prior to discharge but pt unable to lie flat for very long without coughing or sitting up. -aspirin 81 mg daily -We will add Entresto due to non-STEMI and wall motion abnormality with mildly reduced EF. 3. HTN -switch to entresto due to NSTEMI and wall motion abnormality -stop bisoprolol/HCTZ
--- NOTE | 2022-10-28 09:17 | EXP.PULM.PN ---
Subjective *Date: 10/28/22 *Time: 10:41 Interval history: No acute respiratory vents overnight. Admits continued improvement in his symptoms Pulmonology Exam Inpatient Vital signs and Labs for Last 24 Hours: Temp Pulse Resp BP Pulse Ox O2 Del Method O2 Flow Rate 98.1 F 79 16 98/57 L 92 L Nasal Cannula 3 10/28/22 08:00 10/28/22 08:00 10/28/22 08:00 10/28/22 08:00 10/28/22 08:00 10/28/22 08:00 10/28/22 08:00 Laboratory Results - last 24 hr 10/28/22 06:30: WBC 8.9, RBC 4.79, Hgb 14.8, Hct 47.4, MCV 98.9 H, MCH 30.9, MCHC 31.2 L, RDW 13.6, Plt Count 218, MPV 8.0, Neut % (Auto) 88.6 H, Lymph % (Auto) 5.2 L, [place] % (Auto) 6.1, Eos % (Auto) 0.0 L, Baso % (Auto) 0.0 L, Neut # (Auto) 7.9 H, Lymph # (Auto) 0.5 L, [place] # (Auto) 0.5, Eos # (Auto) 0.0, Baso # (Auto) 0.0, Total Counted 100, Neutrophils % (Manual) 84 H, Band Neutrophils % 1.0, Lymphocytes % (Manual) 11, Monocytes % (Manual) 4, Platelet Estimate Normal, RBC Morphology Normal, Sodium 141, Potassium 4.4, Chloride 102, Carbon Dioxide 36 H, Anion Gap 7.4, BUN 20 D, Creatinine 0.60 L D, Estimated Creat Clear 66, Estimated GFR 136, Est GFR ( Amer) 164 D, Glucose 157 H, Calcium 8.5 I & O for Labs for Last 24 Hours: Intake & Output 10/25/22 10/26/22 10/27/22 10/28/22 23:59 23:59 23:59 23:59 Intake Total 1269 / 1269 1370 / 1370 Output Total 0 / 0 0 / 0 Balance 1269 / 1269 1370 / 1370 Weight 129 lb 1 oz 132 lb 9 oz 137 lb 8 oz Microbiology Reports for the Last 24 Hours: Microbiology 10/27/22 11:20 Sputum - Expectorated Sputum Gram Stain - Final Constitutional: Present moderate distress Head: Present normocephalic and atraumatic ENT: Present normal exam, normal oropharynx and mucous membranes moist Neck: Present normal inspection and full ROM Respiratory: Present respiratory distress, wheezes and able to speak in complete sentences Cardiac: Present S1/S2, Tachycardia and radial pulses present GI: Present soft and distention; Absent tenderness or guarding Skin: Present intact; Absent cyanosis or jaundice Neuro: Present alert, awake and oriented x 3 Extremities: Present normal inspection; Absent clubbing or cyanosis Psychiatric: Present normal affect and cooperative Assessment and Plan *Assessment and plan (1) Pneumonia: Status: Acute Qualifiers: Laterality: right Lung location: middle lobe of lung Pneumonia type: due to unspecified organism Qualified Code(s): J18.9 - Pneumonia, unspecified organism Category: Medical Code(s): J18.9 - Pneumonia, unspecified organism (2) COPD exacerbation: Status: Acute Category: Medical Code(s): J44.1 - Chronic obstructive pulmonary disease with (acute) exacerbation (3) Acute respiratory failure with hypoxia: Status: Acute Category: Medical Code(s): J96.01 - Acute respiratory failure with hypoxia Plan Mr. Moody is a 66-year-old male greater than [id number] smoker lst smoked in 2020 carries a diagnosis COPD/emphysema using only nebulizations on as-needed basis at home, not on oxygen presented with worsening respiratory distress and wheezing with worsening productive cough and greenish phlegm and pulmonary was called for further evaluation. Spirometry from 2019 severe COPD with V1 VC ratio 40,FEV1 at 37% predicted and 1.15 L Patient was recently treated as an outpatient basis for COPDexacerbation with azithromycin and prednisone. CTA upon admission no evidence of pulm embolism. Bilateral diffuse centrilobular emphysematous changes noted. Minimal RML and RLLL lower lobe tree-in-bud opacities noted along with right hilar and subcarinal lymphadenopathy likely reactive. Patient on presentation was initiated on ceftriaxone and azithromycin, methylprednisolone and DuoNebs scheduled. Afebrile. No evidence of leukocytosis upon admission. Interval Update: No acute respiratory vents overnight. Patient admits improving respiratory symptoms mascul
--- NOTE | 2022-10-28 18:26 | PC.NURSE ---
pt has remained on 3l nc, tolerating well at rest. low 80s on ra. wheezes noted to abraham lower lungs. family at , no concerns at this time.
--- NOTE | 2022-10-28 19:14 | PC.NURSE ---
pts o2 on the monitor dropped 79-low 80s. pt stated they just gave me a breathing treatment, i had a coughing fit, and i just used that breathing thing pt talking about the IS. o2 now on 4l nc, pt sats 90%.
[2022-10-29] VITALS (7 sets, daily range): BP systolic 116–136; BP diastolic 59–72; PULSE 60–94; RESP 18; TEMP 36.4–36.7; O2SAT 90–95; BMI 23.3
--- NOTE | 2022-10-29 05:36 | PC.NURSE ---
Patient has had a good night. RN attempted to wean O2 down, but was unable to keep saturations above 90. Patient remains independent when going to the bathroom and with ambulation. No other issues noted
--- NOTE | 2022-10-29 08:21 | EXP.ACUTE.PN ---
Subjective *Date: 10/29/22 *Time: 08:44 Interval history: Patient feeling better. Still coughing and SOA. Tried to remove oxygen and his sats decreased into the 80's. Denies any pain. Wants to go home. Medical Exam Vital signs and Labs for Last 24 Hours: Vital Signs Temp Pulse Pulse Resp BP Pulse Ox O2 Del Method 10/29/22 07:52 98.0 F 73 18 136/72 94 L Nasal Cannula 10/29/22 06:04 77 10/29/22 06:04 81 10/29/22 06:04 92 L Nasal Cannula 10/29/22 04:00 60 10/29/22 04:00 98.0 F 75 18 116/66 95 10/29/22 00:00 70 10/29/22 01:00 Nasal Cannula 10/29/22 02:26 80 10/29/22 02:26 81 10/29/22 00:00 98.1 F 94 H 18 118/59 L 94 L Room Air 10/29/22 06:48 Nasal Cannula 10/29/22 05:00 Nasal Cannula 10/29/22 03:00 Nasal Cannula 10/28/22 23:00 Nasal Cannula 10/28/22 21:00 Nasal Cannula 10/28/22 20:00 Nasal Cannula 10/28/22 22:20 71 10/28/22 22:20 85 10/28/22 20:00 97.9 F 76 17 121/61 98 Nasal Cannula 10/28/22 20:00 60 10/28/22 18:35 Nasal Cannula 10/28/22 17:00 Nasal Cannula 10/28/22 18:35 85 10/28/22 18:35 93 H 10/28/22 18:35 92 L Nasal Cannula 10/28/22 16:00 95 H 10/28/22 15:43 98.1 F 88 18 119/66 95 Nasal Cannula 10/28/22 15:00 Nasal Cannula 10/28/22 12:00 68 10/28/22 13:39 80 10/28/22 13:39 78 10/28/22 13:39 92 L Nasal Cannula 10/28/22 13:00 Nasal Cannula 10/28/22 11:00 Nasal Cannula 10/28/22 11:23 98.3 F 69 20 112/67 93 L Nasal Cannula 10/28/22 09:40 72 10/28/22 09:40 72 10/28/22 09:00 Nasal Cannula O2 Flow Rate 10/29/22 07:52 3 10/29/22 06:04 10/29/22 06:04 10/29/22 06:04 3 10/29/22 04:00 10/29/22 04:00 10/29/22 00:00 10/29/22 01:00 3 10/29/22 02:26 10/29/22 02:26 10/29/22 00:00 10/29/22 06:48 3 10/29/22 05:00 3 10/29/22 03:00 3 10/28/22 23:00 2 10/28/22 21:00 3 10/28/22 20:00 3 10/28/22 22:20 10/28/22 22:20 10/28/22 20:00 10/28/22 20:00 10/28/22 18:35 3 10/28/22 17:00 3 10/28/22 18:35 10/28/22 18:35 10/28/22 18:35 3 10/28/22 16:00 10/28/22 15:43 3 10/28/22 15:00 3 10/28/22 12:00 10/28/22 13:39 10/28/22 13:39 10/28/22 13:39 3 10/28/22 13:00 3 10/28/22 11:00 3 10/28/22 11:23 3 10/28/22 09:40 10/28/22 09:40 10/28/22 09:00 3 Intake and Output 10/28/22 10/29/22 10/29/22 19:59 03:59 11:59 Intake Total 2216 / 3416 1200 / 3416 Output Total Balance 2216 / 3415 1199 / 3415 Intake: Intake, Oral Amount 780 / 780 Intake, Total IV Amount 1436 / 2636 1200 / 2636 0.9 % Sodium Chloride 1000ML 1, 1436 / 2636 1200 / 2636 000 ml @ 100 mls/hr IV .Q10H [facility] Rx#:[id number] Output: Output, Urine Amount Other: Number of Unmeasured Voids 200 Weight 137 lb 9.095 oz 145 lb 4.8 oz Patient Weight 10/29/22 11:59 Weight 145 lb 4.8 oz I & O for Labs for Last 24 Hours: Intake & Output 10/26/22 10/27/22 10/28/22 10/29/22 11:59 11:59 11:59 11:59 Intake Total 729 / 729 1909 3416 / 3416 Output Total 0 / 0 0 / 0 Balance 729 / 729 1909 3415 / 3415 Weight 132 lb 9 oz 137 lb 8 oz 145 lb 4.8 oz Microbiology Reports for the Last 24 Hours: Microbiology 10/26/22 15:38 Blood Blood Culture - Preliminary NO GROWTH AFTER 48 HOURS 10/26/22 15:38 Blood Blood Culture - Preliminary NO GROWTH AFTER 48 HOURS Constitutional: Present no acute distress Respiratory: Present wheezes and diminished air movement Cardiac: Present Reg Rate and Rhythm GI: Present normal bowel sounds; Absent tenderness Extremities: Present normal inspection and full ROM; Absent edema Skin: Present intact; Absent erythema Neuro: Present Grossl
--- NOTE | 2022-10-29 08:52 | PC.NURSE ---
Patient is 88 O2 on room air at rest.
--- NOTE | 2022-10-29 09:10 | CARE MANAGER ---
Patient will need oxygen and chose [facility]. Patient order, demographics were faxed to [facility]. They will deliver a portable to [facility] today.
--- NOTE | 2022-10-29 09:22 | EXP.PULM.PN ---
Subjective *Date: 10/29/22 *Time: 10:24 Interval history: No acute respiratory events overnight. Patient admits continued improvement in his respiratory symptoms Pulmonology Exam Inpatient Vital signs and Labs for Last 24 Hours: Temp Pulse Resp BP Pulse Ox O2 Del Method O2 Flow Rate 98.0 F 73 18 136/72 94 L Nasal Cannula 3 10/29/22 07:52 10/29/22 07:52 10/29/22 07:52 10/29/22 07:52 10/29/22 07:52 10/29/22 07:52 10/29/22 07:52 I & O for Labs for Last 24 Hours: Intake & Output 10/26/22 10/27/22 10/28/22 10/29/22 23:59 23:59 23:59 23:59 Intake Total 1269 / 1269 3586 / 4786 1560 / 1560 Output Total 0 / 0 0 / 0 / Balance 1269 / 1269 3586 / 4786 1559 / 1559 Weight 129 lb 1 oz 132 lb 9 oz 137 lb 9.095 oz 145 lb 4.8 oz Microbiology Reports for the Last 24 Hours: Microbiology 10/26/22 15:38 Blood Blood Culture - Preliminary NO GROWTH AFTER 48 HOURS 10/26/22 15:38 Blood Blood Culture - Preliminary NO GROWTH AFTER 48 HOURS Constitutional: Present moderate distress Head: Present normocephalic and atraumatic ENT: Present normal exam, normal oropharynx and mucous membranes moist Neck: Present normal inspection and full ROM Respiratory: Present normal respiratory effort and able to speak in complete sentences; Absent wheezes Cardiac: Present S1/S2, Tachycardia and radial pulses present GI: Present soft and distention; Absent tenderness or guarding Skin: Present intact; Absent cyanosis or jaundice Neuro: Present alert, awake and oriented x 3 Extremities: Present normal inspection; Absent clubbing or cyanosis Psychiatric: Present normal affect and cooperative Assessment and Plan *Assessment and plan (1) Pneumonia: Status: Acute Qualifiers: Laterality: right Lung location: middle lobe of lung Pneumonia type: due to unspecified organism Qualified Code(s): J18.9 - Pneumonia, unspecified organism Category: Medical Code(s): J18.9 - Pneumonia, unspecified organism (2) COPD exacerbation: Status: Acute Category: Medical Code(s): J44.1 - Chronic obstructive pulmonary disease with (acute) exacerbation (3) Acute respiratory failure with hypoxia: Status: Acute Category: Medical Code(s): J96.01 - Acute respiratory failure with hypoxia Plan Mr. Moody is a 66-year-old male greater than [id number] smoker lst smoked in 2020 carries a diagnosis COPD/emphysema using only nebulizations on as-needed basis at home, not on oxygen presented with worsening respiratory distress and wheezing with worsening productive cough and greenish phlegm and pulmonary was called for further evaluation. Spirometry from 2019 severe COPD with V1 VC ratio 40,FEV1 at 37% predicted and 1.15 L Patient was recently treated as an outpatient basis for COPDexacerbation with azithromycin and prednisone. CTA upon admission no evidence of pulm embolism. Bilateral diffuse centrilobular emphysematous changes noted. Minimal RML and RLLL lower lobe tree-in-bud opacities noted along with right hilar and subcarinal lymphadenopathy likely reactive. Patient on presentation was initiated on ceftriaxone and azithromycin, methylprednisolone and DuoNebs scheduled. Afebrile. No evidence of leukocytosis upon admission. Interval Update: Stable oxygen requirements. Auscultation significantly improved, no wheezing noted on auscultation today. Plan: Continue oxygen supplementation to maintain O2 saturation goal of 90% and above, on 3L NC Continue Breztri inhaler along with DuoNebs every 6 hours on as-needed basis, requested meds to beds prior to discharge. Inhaler technique training will be provided prior to discharge Continue prednisone 40 mg daily to complete a total of 5-day course from admission. Antibiotics weaned to cefdinir azithromycin, continue to complete a total of 5-day course from admission #Thank you for involving pulmonary
--- NOTE | 2022-10-29 09:49 | EXP.CARD.PN ---
Subjective Subjective Date: 10/29/22 Time: 09:49 Principal diagnosis: COPD exacerbation, NSTEMI Interval history: 66-year-old white male in bed dressed and anxious to go home. Still with significant cough and shortness of breath with laying down. Still has some hypoxemia without oxygen. Exam Data for Last 24 hours Vital signs and Labs for Last 24 Hours: Temp Pulse Resp BP Pulse Ox O2 Del Method O2 Flow Rate 98.0 F 81 18 136/72 90 L Nasal Cannula 3 10/29/22 07:52 10/29/22 09:25 10/29/22 07:52 10/29/22 07:52 10/29/22 09:25 10/29/22 09:25 10/29/22 09:25 I & O for Last 24 hours: Intake & Output 10/26/22 10/27/22 10/28/22 10/29/22 11:59 11:59 11:59 11:59 Intake Total 729 / 729 0 / 1910 3776 / 3776 Output Total 0 / 0 0 / 0 / Balance 729 / 729 1909 / 0 3775 / 3775 Weight 132 lb 9 oz 137 lb 8 oz 145 lb 4.8 oz Microbiology Reports for the Last 24 Hours: Microbiology 10/26/22 15:38 Blood Blood Culture - Preliminary NO GROWTH AFTER 48 HOURS 10/26/22 15:38 Blood Blood Culture - Preliminary NO GROWTH AFTER 48 HOURS *Routine Respiratory Exam Respiratory: Present decreased breath sounds and rhonchi *Routine Cardiovascular Exam Cardiovascular: Present RRR Progress Note: A&P Assessment and plan (1) Pneumonia: Status: Acute (2) COPD exacerbation: Status: Acute (3) Acute respiratory failure with hypoxia: Status: Acute (4) Hypertension: Status: Acute Assessment and Plan Assessment and Plan for All Diagnoses:: 1. COPD exacerbation with hypoxemia -CTA negative for PE or infiltrates -on ceftriaxone and azithromycin along with IV steroids -treatment per Dr. Leon and Dr. Ball 2. Elevated troponin/NSTEMI related to #1 -echo shows EF 50% with mild hypokinesis of the basal inferior LV wall. Mild RV dilatation with mild reduced RV function. Mild MR and moderate TR with RVSP of 50-55 mmHg. -CAC noted on CTA scan -In light of wall motion abnormality in setting of non-STEMI, would prefer to proceed with LHC prior to discharge but pt unable to lie flat for very long without coughing or sitting up. -aspirin 81 mg daily -We will add Entresto due to non-STEMI and wall motion abnormality with mildly reduced EF. 3. HTN -switch to entresto due to NSTEMI and wall motion abnormality -stop bisoprolol/HCTZ STable from CV standpoint for discharge home. Home med recommendations: Entresto 24/26 mg BID (samples provided) Follow up in 1-2 wks to discuss setting up cardiac cath.
--- NOTE | 2022-10-29 09:59 | CARE MANAGER ---
Received a call from [facility]) that they do not accept [facility] insurance. In network providers are [facility] from [place] or [facility] [place]. Patient chose [facility], order and dempgraphics faxed to [phone].
--- NOTE | 2022-10-29 10:21 | HMH.PHAINT1 ---
Pharmacy Intervention Comments: SAMPLE OF ENTRESTO FROM CARDIOLOGY PROVIDED TO PATIENT. COUNSELED PATIENT ON HOW TO TAKE MEDICATIONS AND SIDE EFFECTS. -TITUS RICHARDSON, MARYD
--- NOTE | 2022-10-30 15:14 | CARE MANAGER ---
Spoke with patient for post-discharge phone interview, no issues noted.
--- NOTE | 2022-11-04 10:04 | EXP.DC.SUM ---
General Admission date:: 10/26/22 Discharge date: 10/29/22 HPI HPI HPI: Mr. Moody is a 66-year-old male with a history of hypertension, BPH, and COPD who presented to the office of [facility] 10/26/2022 complaining of shortness of breath and ongoing productive cough. He states he was awakening during the night for the last 3 nights and was unable to breathe. He has been using DuoNeb treatments frequently with some assistance. He was also seen in the office on 10/23/2022 and started on Zithromax for a respiratory infection. He also received a steroid shot at that time. With evaluation in the office of [facility] yesterday white blood cell count was found to be 10,200. He was having labored respiratory efforts and was sent to the ER for treatment, management, and possible admission. With evaluation in the emergency room white count continued to be elevated. He was noted to be afebrile with O2 sats initially at 85%. After application of oxygen per nasal cannula at 2 L, O2 sats were 94. He was given several DuoNeb treatments and started on Rocephin and Zithromax IV. He also received 125 mg of Solu-Medrol. Troponin I's were found to be elevated. He was thus admitted for ongoing treatment and for further evaluation. This a.m. at time of exams he admits to feeling little bit better. He did sleep some. He is hungry for breakfast. He continues with a nonproductive cough. He has remained on O2 at 3 L/min. He denies any chest pain. Chest x-ray revealed coarse interstitial opacities in the lung base with appearance of moderate chronic fibrosis. He also had a CTA of the chest which revealed no evidence of PE, Central obar emphysema and changes of chronic fibrosis; small nonobstructing renal stones. Hospital Course Hospital Course Hospital Course: The patient was admitted and started on IV antibiotics, steroids, and DuoNebs. Cardiology was consulted for elevated troponins and pulmonology was consulted as well. Cardiology ordered an echo and wanted to do a cardiac work-up when the patient improved from a pulmonary standpoint. They did add 81 mg aspirin daily. Pulmonology wanted the patient to have DuoNebs every 4 hours along with Pulmicort every 12 hours scheduled. He recommended to continue antibiotics and oxygen supplementation to maintain saturation above 90%. By 10/28/2022, the patient was still very short of breath. The patient's echo did show wall motion abnormality and an EF of 50%. Cardiology wanted to proceed with a heart cath prior to discharge, but patient was unable to lay flat without coughing or sitting up. They added Entresto. By 10/29/2022, he was starting to feel better. He tried to remove his oxygen and his sats decreased into the 80s. He wanted to go home. His blood culture showed no growth at 48 hours and sputum culture was normal. It was felt he was stable to discharge home with supplemental oxygen. Cardiology wanted to follow-up with them in 1 to 2 weeks for a heart cath. Pulmonology felt he should be continued on the supplemental oxygen, a Breztri inhaler along with DuoNebs, prednisone 40 mg daily to complete a total of 5 days, and cefdinir and Zithromax. Exam Data for Last 24 hours Vital signs and Labs for Last 24 Hours: Temp Pulse Resp BP Pulse Ox O2 Del Method O2 Flow Rate 97.5 F L 85 18 123/67 94 L Nasal Cannula 3 10/29/22 11:46 10/29/22 11:46 10/29/22 11:46 10/29/22 11:46 10/29/22 11:46 10/29/22 11:46 10/29/22 11:46 Narrative: Constitutional Constitutional: no acute distress *Routine HEENT Exam Head: Present normocephalic and atraumatic Eye: Present PERRL; Absent conjunctival icterus, scleral injection or conjunctivae pink ENT: Present mucous membranes moist, oropharynx clear and nares patent *Routine Neck Exam Neck: Absent carotid bruit, lymphadenopathy or thyromegaly *Routine Respiratory Exam Respiratory: Present decreased breath sounds (Posteriorly), pro
== END 2022-10-29 12:21 | disposition home or self-care (01) | DRG 280 ==
LOC: ER 16:03 → 2ND 21:20
PROVIDERS: Admitting Provider Family Medicine; Emergency Provider Emergency Medicine; PCP Family Medicine; Visit Provider Family Medicine
DX: I21.4 Non-ST elevation (NSTEMI) myocardial infarction (principal); J96.01 Acute respiratory failure with hypoxia; I10 Essential (primary) hypertension; Z87.891 Personal history of nicotine dependence; J43.1 Panlobular emphysema; I08.1 Rheumatic disorders of both mitral and tricuspid valves
CPT/HCPCS: 36415; 71045; 71275; 80048; 80053; 82009; 82803; 83605; 83880; 84145; 84484; 85007; 85025; 87040; 87070; 87205; 93005; 93306; 94640; 94667; 94761; 99285; J0456; J0696; Q9967